=== PATIENT | female | born 1955 | race Caucasian/White ===

== ENCOUNTER 2020-11-04 10:34 | Outpatient (CLI) | payer OTHER, MEDICARE, SELFPAY ==
--- NOTE | 2020-11-04 10:42 | MM_ITS ---
WS: [id number] BILATERAL DIGITAL SCREENING MAMMOGRAPHY WITH CAD CLINICAL INFORMATION: SCREENING HISTORY: Screening mammogram. No current complaints. COMPARISON: TECHNIQUE: Bilateral CC and MLO views. FINDINGS: Scattered fibroglandular densities bilaterally. Coarse dystrophic calcifications upper outer left torsten ast. No suspicious focal mass, asymmetry, calcifications, or architectural distortion. No evidence of malignancy. MM/[place] [id number] IMPRESSION: BI-RADS: 2-Benign FOLLOW UP: 1 Year Follow-up Recommend return to annual screening mammography.
== END 2020-11-04 10:35 | disposition home or self-care (01) ==
LOC: RADSHAW 10:40
PROVIDERS: PCP Nurse Practitioner; Visit Provider Nurse Practitioner
DX: Z12.31 Encounter for screening mammogram for malignant neoplasm of breast (principal)
CPT/HCPCS: 77067

== ENCOUNTER 2020-11-22 11:21 | Outpatient (CLI) | payer OTHER, SELFPAY ==
--- NOTE | 2020-11-22 11:29 | CT_ITS ---
WS: [id number] CT NECK TECHNIQUE: Contrast-enhanced CT of the neck with coronal and sagittal reformatted images. CLINICAL INFORMATION: OTHER ALLERGIC RHINITIS COMPARISON: None. DLP: 832.[address] scans at [facility] use at least one of these dose optimization techniques: automated e xposure control; mA and/or kV adjustment per patient size (includes targeted exams where dose is matc hed to clinical indication); or iterative reconstruction. FINDINGS: Normal parotid glands. Submandibular glands are normal. Normal posterior nasopharynx and parapharynge al fat. Tongue base appears normal. No evidence of supra glottic or glottic mass. Normal vallecula an d piriform sinuses. Normal subglottic airway. A few small thyroid nodules. Partially visualized mastoid air cells are well aerated. Partially visualized paranasal sinuses demon strate mild mucosal thickening. Lung apices are well aerated. Mild spondylitic changes cervical spine with slight anterolisthesis C4 on C5. Disc space narrowing C5-C6 and C6-C7. Carotid bulb calcificati on. Right ICA stenosis appears at least moderate. This can be further evaluated with ultrasound or CT A neck. CT/CT neck w con* [id number] IMPRESSION: 1. Normal salivary glands. 2. No cervical lymphadenopathy. 3. No evidence of supraglottic or glottic mass. 4. Small bilateral thyroid nodules. 5. Bilateral carotid bulb calcification with moderate appearing stenosis right proximal ICA. This can be further evaluated with ultrasound and/or CTA neck.
[2020-11-22] MEDS: iohexol 300 mg/mL 100 mL Btl IV (12:32)
== END 2020-11-22 11:22 | disposition home or self-care (01) ==
PROVIDERS: PCP Nurse Practitioner; Visit Provider Specialist
DX: J30.89 Other allergic rhinitis (principal); E04.2 Nontoxic multinodular goiter; I65.23 Occlusion and stenosis of bilateral carotid arteries
CPT/HCPCS: 70491; Q9967

== ENCOUNTER 2021-08-14 09:55 | Outpatient (CLI) | payer OTHER, SELFPAY ==
--- NOTE | 2021-08-14 10:00 | USCV_ITS ---
Sweta Lewis Age: 66 Gender: F : 1955 Exam Date: 08/14/2021 10:19 Ordering Phys: Edgar Gordon MD (Andy) ([email or web address] [email or web address]) Technologist: Exam Location: [facility] [place], [place] Indication: cca disease Risk Factors: Previous Vascular Surgery: Right Brachial BP: / Left Brachial BP: / Right Left Velocity (cm/s) Spectral Plaque Velocity (cm/s) Spectral Plaque Syst/Diast Broadening Syst/Diast Broadening 131.80/46.15 Prox CCA 64.50 / 17.10 48.50/ 14.30 Mid CCA 61.40 / 14.80 117.40/37.95 Hetro Distal CCA 50.50 / 17.90 Hetro 197.30/74.60 Hetro Prox ICA 59.00 / 17.10 Hetro 161.60/62.10 Mid ICA 103.60/ 35.85 152.00/62.00 Distal ICA 105.80/ 36.40 79.40 ECA 59.00 0.92 ICA/CCA 1.64 Antegrade Vertebral Antegrade 48.20/ 11.70 cm/s 39.30/ 12.40 cm/s Tri Subclavian Tri 79.20 102.5 0 FINDINGS Comparison: none available. Diffuse bilateral scattered calcified plaque and intimal thickening throughout the common carotid arteries and extending through the bifurcation. Moderate elevation of velocity right ICA. Mild diastolic elevation also. Antegrade vertebral arteries. CONCLUSIONS Right ICA stenosis 50-69%. Left ICA stenosis < 50%. Dr. Amanda Corbett DO (Electronically Signed) Final Date: 14 Aug 2021 14:05 S
== END 2021-08-14 09:56 | disposition home or self-care (01) ==
LOC: RAD 09:58
PROVIDERS: PCP Nurse Practitioner; Visit Provider Thoracic Surgery (Cardiothoracic Vascular Surgery)
DX: I65.23 Occlusion and stenosis of bilateral carotid arteries (principal)
CPT/HCPCS: 93880

== ENCOUNTER → 2021-08-21 10:10 | Outpatient (BNVA) | payer OTHER, SELFPAY | PROVIDERS: PCP Nurse Practitioner; Visit Provider Thoracic Surgery (Cardiothoracic Vascular Surgery) | DX: I65.21 Occlusion and stenosis of right carotid artery (principal) | CPT/HCPCS: 99212 ==

== ENCOUNTER → 2021-09-10 10:03 | Outpatient (BNVA) | payer OTHER, SELFPAY | PROVIDERS: PCP Nurse Practitioner; Visit Provider Internal Medicine Cardiovascular Disease | DX: I10 Essential (primary) hypertension (principal); R07.9 Chest pain, unspecified; E78.5 Hyperlipidemia, unspecified; I65.21 Occlusion and stenosis of right carotid artery | CPT/HCPCS: 93005; 99204 ==

== ENCOUNTER → 2021-10-28 11:02 | Outpatient (BNVA) | payer OTHER, SELFPAY | PROVIDERS: PCP Nurse Practitioner; Visit Provider Surgery | DX: K80.10 Calculus of gallbladder with chronic cholecystitis without obstruction (principal) | CPT/HCPCS: 99203 ==

== ENCOUNTER → 2021-11-03 14:19 | Outpatient (BNVA) | payer OTHER, SELFPAY | PROVIDERS: PCP Nurse Practitioner; Visit Provider Surgery | DX: Z09 Encounter for follow-up examination after completed treatment for conditions other than malignant neoplasm (principal); R10.9 Unspecified abdominal pain; K80.10 Calculus of gallbladder with chronic cholecystitis without obstruction | CPT/HCPCS: 99212 ==

== ENCOUNTER 2022-01-12 06:03 | Outpatient (CLI) | payer OTHER, SELFPAY ==
--- NOTE | 2022-01-12 07:00 | US_ITS ---
WS: [id number] RIGHT UPPER QUADRANT ULTRASOUND HISTORY: Abdominal pain COMPARISON: None available. Liver: 16.8 cm in length. Liver is top normal size. Mild increased echogenicity and attenuation throu ghout the liver. No mass or bile duct dilatation. Portal Vein: Normal hepatopetal flow with monophasic waveform. Gallbladder: Normally distended but there is sludge and a few scattered stones and echogenic foci wit hin the gallbladder. There is mild gallbladder wall thickening measuring 4.5 mm. No pericholecystic f luid. CBD: 0.6 cm Pancreas: Only partially visualized due to adjacent bowel gas. Right kidney: 11.2 cm in length. Normal size and echogenicity. No hydronephrosis or mass. Aorta and IVC: Unremarkable abdominal aorta and IVC. No ascites. US/US gall bladder [id number] IMPRESSION: 1. Cholelithiasis with gallbladder sludge and mild diffuse gallbladder wall th ickening. No pericholecystic fluid. In the correct clinical setting this may re present changes of acute or chronic cholecystitis. No Goff's sign. 2. Normal common bile duct. 3. Mild hepatic steatosis and hepatomegaly.
== END 2022-01-12 06:04 | disposition home or self-care (01) ==
LOC: RAD 06:03
PROVIDERS: PCP Nurse Practitioner; Visit Provider Surgery
DX: K80.20 Calculus of gallbladder without cholecystitis without obstruction (principal); K76.0 Fatty (change of) liver, not elsewhere classified; R16.0 Hepatomegaly, not elsewhere classified
CPT/HCPCS: 76705

== ENCOUNTER → 2022-01-28 08:17 | Outpatient (BNVA) | payer OTHER, SELFPAY | PROVIDERS: PCP Nurse Practitioner; Visit Provider Surgery | DX: Z09 Encounter for follow-up examination after completed treatment for conditions other than malignant neoplasm (principal); K80.10 Calculus of gallbladder with chronic cholecystitis without obstruction | CPT/HCPCS: 99213 ==

== ENCOUNTER → 2022-03-05 10:26 | Outpatient (BNVA) | payer OTHER, SELFPAY | PROVIDERS: PCP Nurse Practitioner; Visit Provider Internal Medicine Cardiovascular Disease | DX: R07.9 Chest pain, unspecified (principal); I10 Essential (primary) hypertension; E78.5 Hyperlipidemia, unspecified; I65.21 Occlusion and stenosis of right carotid artery | CPT/HCPCS: 99214 ==

== ENCOUNTER → 2023-03-03 10:49 | Outpatient (BNVA) | payer OTHER, SELFPAY | PROVIDERS: PCP Nurse Practitioner; Visit Provider Internal Medicine Cardiovascular Disease | DX: R07.9 Chest pain, unspecified (principal); I65.21 Occlusion and stenosis of right carotid artery; I10 Essential (primary) hypertension; E78.5 Hyperlipidemia, unspecified | CPT/HCPCS: 99214 ==

== ENCOUNTER 2023-03-19 10:08 | Outpatient (CLI) | payer OTHER, SELFPAY ==
--- NOTE | 2023-03-19 10:15 | USCV_ITS ---
Sweta Lewis Age: 67 Gender: F : 1955 Exam Date: 03/19/2023 10:30 Ordering Phys: Lilly Frankel MD ([email or web address]) Technologist: Reginald Tran Exam Location: [facility] [place] Indication: Rt side stenosis Risk Factors: Previous Vascular Surgery: Right Brachial BP: / Left Brachial BP: / Right Left Velocity (cm/s) Spectral Plaque Velocity (cm/s) Spectral Plaque Syst/Diast Broadening Syst/Diast Broadening 62.80/ 17.60 Prox CCA 82.30 / 24.90 59.50/ 18.70 Mid CCA 57.50 / 14.00 73.90/ 19.80 Hetro Distal CCA 56.70 / 18.60 Hetro 174.50/54.00 Hetro Prox ICA 69.10 / 18.60 172.70/70.20 Hetro Mid ICA 69.90 / 27.20 192.50/63.00 Distal ICA 92.40 / 37.30 81.60 ECA 72.20 2.61 ICA/CCA 1.12 Antegrade Vertebral Antegrade 55.90/ 11.70 cm/s 45.10/ 14.00 cm/s Tri Subclavian Tri 74.60 83.90 CONCLUSIONS Right ICA stenosis 50-69%. Moderate atheromatous plaque right carotid bulb/ICA. Left ICA stenosis <50%. Mild atheromatous plaque left carotid bulb/ICA. Normal antegrade Doppler flow noted in the right vertebral artery. Normal antegrade Doppler flow noted in the left vertebral artery. Andrade Rivers MD (Electronically Signed) Final Date: 19 March 2023 16:38 S
== END 2023-03-19 10:09 | disposition home or self-care (01) ==
LOC: RAD 10:09
PROVIDERS: Visit Provider Internal Medicine Cardiovascular Disease
DX: I65.23 Occlusion and stenosis of bilateral carotid arteries (principal)
CPT/HCPCS: 93880

== ENCOUNTER 2023-03-30 14:53 | Outpatient (RCR) | payer OTHER, SELFPAY | END 2023-04-21 23:59 | disposition home or self-care (01) | LOC: SPT 14:53 | PROVIDERS: PCP Nurse Practitioner; Visit Provider Nurse Practitioner | DX: N39.42 Incontinence without sensory awareness (principal) | CPT/HCPCS: 97110; 97161; 97530 ==

== ENCOUNTER 2023-04-15 11:42 | Outpatient (RCR) | payer OTHER, SELFPAY | END 2023-04-21 23:59 | disposition home or self-care (01) | LOC: SPT 11:42 | PROVIDERS: Visit Provider Nurse Practitioner | DX: M25.511 Pain in right shoulder (principal) | CPT/HCPCS: 97110; 97161; 99213 ==

== ENCOUNTER 2023-04-22 06:00 | Outpatient (RCR) | payer OTHER, SELFPAY | END 2023-05-20 23:59 | disposition home or self-care (01) | LOC: SPT 06:00 | PROVIDERS: PCP Nurse Practitioner; Visit Provider Nurse Practitioner | DX: M25.511 Pain in right shoulder (principal) | CPT/HCPCS: 97110 ==

== ENCOUNTER 2023-04-22 06:00 | Outpatient (RCR) | payer OTHER, SELFPAY | END 2023-05-20 23:59 | disposition home or self-care (01) | LOC: SPT 06:00 | PROVIDERS: PCP Nurse Practitioner; Visit Provider Nurse Practitioner | DX: N39.42 Incontinence without sensory awareness (principal) | CPT/HCPCS: 97110; 97530 ==

== ENCOUNTER 2023-05-21 06:00 | Outpatient (RCR) | payer OTHER, SELFPAY | END 2023-06-20 23:59 | disposition home or self-care (01) | LOC: SPT 06:00 | PROVIDERS: PCP Nurse Practitioner; Visit Provider Nurse Practitioner | DX: M25.511 Pain in right shoulder (principal) | CPT/HCPCS: 97110 ==

== ENCOUNTER 2023-05-21 06:00 | Outpatient (RCR) | payer OTHER, SELFPAY | END 2023-06-20 23:59 | disposition home or self-care (01) | LOC: SPT 06:00 | PROVIDERS: PCP Nurse Practitioner; Visit Provider Nurse Practitioner | DX: N39.42 Incontinence without sensory awareness (principal) | CPT/HCPCS: 97110; 97530 ==

== ENCOUNTER 2023-06-21 06:00 | Outpatient (RCR) | payer OTHER, SELFPAY | END 2023-07-20 23:59 | disposition home or self-care (01) | LOC: SPT 06:00 | PROVIDERS: PCP Nurse Practitioner; Visit Provider Nurse Practitioner | DX: N39.42 Incontinence without sensory awareness (principal) | CPT/HCPCS: 97110 ==

== ENCOUNTER 2023-06-21 06:00 | Outpatient (RCR) | payer OTHER, SELFPAY | END 2023-07-20 23:59 | disposition home or self-care (01) | LOC: SPT 06:00 | PROVIDERS: PCP Nurse Practitioner; Visit Provider Nurse Practitioner | DX: M25.511 Pain in right shoulder (principal) | CPT/HCPCS: 97110 ==

== ENCOUNTER 2023-09-14 08:46 | Outpatient (CLI) | payer OTHER, SELFPAY ==
--- NOTE | 2023-09-14 09:00 | USCV_ITS ---
Sweta Lewis Age: 68 Gender: F : 1955 Exam Date: 09/14/2023 08:53 Ordering Phys: Edgar Gordon MD (Andy) ([email or web address] [place] Technologist: [employer] Exam Location: [facility] Indication: stenosis Risk Factors: Previous Vascular Surgery: Right Brachial BP: / Left Brachial BP: / Right Left Velocity (cm/s) Spectral Plaque Velocity (cm/s) Spectral Plaque Syst/Diast Broadening Syst/Diast Broadening 91.00/ 16.80 Prox CCA 85.30 / 19.80 77.30/ 18.50 Mid CCA 84.60 / 21.50 66.00/ 13.60 Distal CCA 67.10 / 18.20 136.80/52.80 Prox ICA 40.10 / 15.40 121.90/36.30 Mid ICA 61.90 / 25.80 86.80/ 29.10 Distal ICA 64.10 / 26.90 85.80 ECA 74.80 2.10 ICA/CCA 1.00 Antegrade Vertebral Antegrade 52.30/ 13.80 cm/s 68.20/ 21.40 cm/s Tri Subclavian Tri 90.60 134.8 0 FINDINGS comp 03/13 CONCLUSIONS Right ICA stenosis 50-69%. Moderate atheromatous plaque right carotid bulb/ICA. PSV decreased compared to prior Left ICA stenosis <50%. Mild atheromatous plaque left carotid bulb/ICA. Intimal thickening in the common carotid arteries and internal carotid arteries bilaterally. Normal antegrade Doppler flow noted in the right vertebral artery. Normal antegrade Doppler flow noted in the left vertebral artery. Andrade Rivers MD (Electronically Signed) Final Date: 14 September 2023 10:11 S
== END 2023-09-14 08:47 | disposition home or self-care (01) ==
LOC: RAD 08:46
PROVIDERS: PCP Nurse Practitioner; Visit Provider Thoracic Surgery (Cardiothoracic Vascular Surgery)
DX: I65.23 Occlusion and stenosis of bilateral carotid arteries (principal)
CPT/HCPCS: 93880

== ENCOUNTER 2023-11-02 08:45 | Outpatient (CLI) | payer OTHER, SELFPAY ==
--- NOTE | 2023-11-02 08:50 | MM_ITS ---
WS: [id number] BILATERAL SCREENING DIGITAL TOMOSYNTHESIS MAMMOGRAM WITH CAD HISTORY: SCREENING COMPARISON: 11/04/2020, 01/06/2012 and 06/08/2017 Bilateral CC and MLO views with tomosynthesis and synthetic mammography submitted. Computer aided det ection analyzed. Breast composition: There are scattered areas of fibroglandular density. No suspicious masses, microc alcifications or architectural distortion. Benign coarse calcification 3:00 LEFT breast. MM/[place] [id number] IMPRESSION: BI-RADS: 2-Benign FOLLOW UP: 1 Year Follow-up
== END 2023-11-02 08:46 | disposition home or self-care (01) ==
PROVIDERS: PCP Nurse Practitioner; Visit Provider Nurse Practitioner
DX: Z12.31 Encounter for screening mammogram for malignant neoplasm of breast (principal)
CPT/HCPCS: 77063; 77067

== ENCOUNTER 2023-12-30 08:32 | Outpatient (RCR) | payer OTHER, SELFPAY | END 2024-01-20 23:59 | disposition home or self-care (01) | LOC: SPT 08:32 | PROVIDERS: Visit Provider Orthopaedic Surgery | DX: M17.12 Unilateral primary osteoarthritis, left knee (principal) | CPT/HCPCS: 97110; 97161 ==

== ENCOUNTER 2024-01-21 06:00 | Outpatient (RCR) | payer OTHER, SELFPAY | END 2024-02-19 23:59 | disposition home or self-care (01) | LOC: SPT 06:00 | PROVIDERS: Visit Provider Orthopaedic Surgery | DX: M17.12 Unilateral primary osteoarthritis, left knee (principal) | CPT/HCPCS: 97110 ==

== ENCOUNTER 2024-04-18 13:29 | Outpatient (RCR) | payer OTHER, SELFPAY | END 2024-04-21 23:59 | disposition home or self-care (01) | LOC: SPT 13:29 | PROVIDERS: Visit Provider Orthopaedic Surgery | DX: Z98.890 Other specified postprocedural states (principal) | CPT/HCPCS: 97110; 97161 ==

== ENCOUNTER 2024-04-22 06:00 | Outpatient (RCR) | payer OTHER, SELFPAY | END 2024-05-19 23:59 | disposition home or self-care (01) | LOC: SPT 06:00 | PROVIDERS: Visit Provider Orthopaedic Surgery | DX: Z98.890 Other specified postprocedural states (principal) | CPT/HCPCS: 97110 ==

== ENCOUNTER 2024-04-22 06:30 | Outpatient (RCR) | payer OTHER, SELFPAY | END 2024-05-19 23:59 | disposition home or self-care (01) | LOC: SPT 06:30 | PROVIDERS: Visit Provider Orthopaedic Surgery | DX: M17.12 Unilateral primary osteoarthritis, left knee (principal) | CPT/HCPCS: 97110 ==

== ENCOUNTER 2024-05-20 06:00 | Outpatient (RCR) | payer OTHER, SELFPAY | END 2024-06-19 23:59 | disposition home or self-care (01) | LOC: SPT 06:00 | PROVIDERS: Visit Provider Orthopaedic Surgery | DX: M17.12 Unilateral primary osteoarthritis, left knee (principal) | CPT/HCPCS: 97110 ==

== ENCOUNTER 2024-05-20 06:00 | Outpatient (RCR) | payer OTHER, SELFPAY | END 2024-06-19 23:59 | disposition home or self-care (01) | LOC: SPT 06:00 | PROVIDERS: Visit Provider Orthopaedic Surgery | DX: Z98.890 Other specified postprocedural states (principal) | CPT/HCPCS: 97110 ==

== ENCOUNTER 2024-06-20 06:00 | Outpatient (RCR) | payer OTHER, SELFPAY | END 2024-07-19 23:59 | disposition home or self-care (01) | LOC: SPT 06:00 | PROVIDERS: Visit Provider Orthopaedic Surgery | DX: Z98.890 Other specified postprocedural states (principal) | CPT/HCPCS: 97110 ==

== ENCOUNTER 2024-11-02 09:53 | Outpatient (CLI) | payer OTHER, SELFPAY ==
--- NOTE | 2024-11-02 | MM_ITS ---
WS: [id number] Bilateral screening 3D tomosynthesis digital mammogram, 11/02/2024 12:00 AM Clinical Data: ANNUAL SCREENING Comparison: 11/02/2023, 11/04/2020, 01/03/2019, 06/08/2017, 09/06/2013, 01/06/2012, 04/30/2010, 05/15/2009. Findings: No spiculated masses or clustered calcifications are seen. There are no secondary signs of carcinoma. MM/MM scr BI tomosynthesis [id number] Impression: Negative bilateral mammogram unchanged. Recommend annual screening mammograms. BIRADS: 1 - Negative. FOLLOW UP: 1 Year Follow-up DENSITY: There are scattered areas of fibroglandular density. The CAD time checker was used
== END 2024-11-02 09:54 | disposition home or self-care (01) ==
LOC: RAD 09:54
PROVIDERS: Visit Provider Nurse Practitioner
DX: Z12.31 Encounter for screening mammogram for malignant neoplasm of breast (principal)
CPT/HCPCS: 77063; 77067